=== PATIENT | male | born 1990 | race American Indian/Alaskan Native ===

== ENCOUNTER 2018-01-07 13:50 | Emergency (ER) | payer SELFPAY ==
[2018-01-07 14:35] VITALS: BP 120/78
--- NOTE | 2018-01-07 17:31 | Emergency Department Report ---
Della Doc - Documentation Documentation: Patient is a 27-year-old -[place] male who fell and injured his left fourth digit. He has some scrapes on the dorsal surface of his finger. He does have pain with range of motion. Mostly at the PIP joint. Patient will have x-ray to rule out fracture.
--- NOTE | 2018-01-07 19:42 | XRay Report ---
FINAL REPORT EXAM: XR HAND 3+V LT HISTORY: 4th digit injury pain TECHNIQUE: 3 views of left hand PRIORS: None. FINDINGS: No fracture is identified. No dislocation seen. Joint spaces are within normal limits. No erosive bony change identified. Carpal bones maintain normal alignment. Distal radius and ulna are intact. No radiopaque foreign bodies seen. IMPRESSION: Negative hand series
--- NOTE | 2018-01-07 20:09 | Emergency Department Report ---
ED Laceration [facility] Chief Complaint: Wound/Laceration Stated Complaint: LEFT FINGER PAIN Time Seen by Provider: 01/07/18 17:28 Location: Upper Extremity Severity: mild Tetanus Status: Not up to Date Laceration Symptoms: Yes Pain, No Foreign Body Sensation, No Numbness, No Weakness ED Review of Systems ROS: Stated complaint: LEFT FINGER PAIN Other details as noted in HPI ED Past Medical Hx - Past Medical History Previous Medical History?: No - Surgical History Past Surgical History?: Yes Additional Surgical History: Ear tubes at 4 years old - Social History Smoking Status: Never Smoker - Medications Home Medications: Home Medications Medication Instructions Recorded Confirmed Last Taken Type Amoxicillin/K Clav Tab [Augmentin 1 tab PO BID #20 tablet 07/22/14 Unknown Rx 875MG] Ibuprofen [Motrin] 600 mg PO Q8H PRN #60 tablet 07/22/14 Unknown Rx Loratadine [Claritin] 10 mg PO DAILY #30 tablet 07/22/14 Unknown Rx predniSONE [Deltasone] 50 mg PO QDAY #5 tab 07/22/14 Unknown Rx Ibuprofen [Motrin] 600 mg PO Q8H PRN #60 tablet 08/23/15 Unknown Rx traMADol [Ultram] 50 mg PO Q6HR PRN #14 tablet 08/23/15 Unknown Rx Laceration Physical Exam - Exam General: Vital signs noted. No distress. Alert and acting appropriately. ED Course Vital Signs 01/07/18 14:29 Temperature 98 F Pulse Rate 64 Respiratory 16 Rate Blood Pressure 120/78 O2 Sat by Pulse 95 Oximetry Critical care attestation.: If time is entered above; I have spent that time in minutes in the direct care of this critically ill patient, excluding procedure time. ED Disposition Condition: Stable Referrals: PRIMARY CARE, [Primary Care Provider] - 3-5 Days
[2018-01-07] MEDS ORDERED: MOTRIN PO ONE (20:23)
[2018-01-07] MEDS ORDERED: BOOSTRIX IM ONE (20:23)
--- NOTE | 2018-01-07 20:33 | Emergency Department Report ---
ED Upper Extremity Inj HPI - General Chief Complaint: Wound/Laceration Stated Complaint: LEFT FINGER PAIN Time Seen by Provider: 01/07/18 17:28 Source: patient Mode of arrival: Ambulatory Limitations: No Limitations - History of Present Illness Initial Comments: This is a 27-year-old male nontoxic, well nourished in appearance, no acute signs of distress presents to the ED with c/o of left fourth finger pain status post fall x2 days. Patient stated he tripped and fell. Patient denies any numbness, tingling, fever, chills, headache, nausea, vomiting, chest pain, shortness of breathe. Patient denies any head trauma. Patient denies any allergies or PMH. MD Complaint: Injury to:: left, hand -: days(s) (2) Other Extremity Injury: Hand: Left Other Injuries: none Place: outdoors Severity scale (0 -10): 8 Improves With: immobilization Worsens With: movement of extremity Context: fall, direct blow Associated Symptoms: denies other symptoms. denies: weakness, numbness, neck pain, suspects foreign body, nausea/vomiting, heard/felt popping sensat - Related Data Previous Rx's Medication Instructions Recorded Last Taken Type Amoxicillin/K Clav Tab [Augmentin 1 tab PO BID #20 tablet 07/22/14 Unknown Rx 875MG] Ibuprofen [Motrin] 600 mg PO Q8H PRN #60 tablet 07/22/14 Unknown Rx Loratadine [Claritin] 10 mg PO DAILY #30 tablet 07/22/14 Unknown Rx predniSONE [Deltasone] 50 mg PO QDAY #5 tab 07/22/14 Unknown Rx Ibuprofen [Motrin] 600 mg PO Q8H PRN #60 tablet 08/23/15 Unknown Rx traMADol [Ultram] 50 mg PO Q6HR PRN #14 tablet 08/23/15 Unknown Rx Ibuprofen [Motrin] 600 mg PO Q8H PRN #30 tablet 01/07/18 Unknown Rx Sulfamethoxazole/Trimethoprim 1 each PO BID #14 tablet 01/07/18 Unknown Rx [Bactrim DS TAB] Allergies Allergy/AdvReac Type Severity Reaction Status Date / Time No Known Allergies Allergy Verified 07/22/14 13:09 ED Review of Systems ROS: Stated complaint: LEFT FINGER PAIN Other details as noted in HPI Constitutional: denies: chills, fever Eyes: denies: eye pain, eye discharge, vision change ENT: denies: ear pain, throat pain Respiratory: denies: cough, shortness of breath, wheezing Cardiovascular: denies: chest pain, palpitations Endocrine: no symptoms reported Gastrointestinal: denies: abdominal pain, nausea, diarrhea Genitourinary: denies: urgency, dysuria Musculoskeletal: arthralgia. denies: back pain, joint swelling Skin: denies: rash, lesions Neurological: denies: headache, weakness, paresthesias Psychiatric: denies: anxiety, depression Hematological/Lymphatic: denies: easy bleeding, easy bruising ED Past Medical Hx - Past Medical History Previous Medical History?: No - Surgical History Past Surgical History?: Yes Additional Surgical History: Ear tubes at 4 years old - Social History Smoking Status: Never Smoker - Medications Home Medications: Home Medications Medication Instructions Recorded Confirmed Last Taken Type Amoxicillin/K Clav Tab [Augmentin 1 tab PO BID #20 tablet 07/22/14 Unknown Rx 875MG] Ibuprofen [Motrin] 600 mg PO Q8H PRN #60 tablet 07/22/14 Unknown Rx Loratadine [Claritin] 10 mg PO DAILY #30 tablet 07/22/14 Unknown Rx predniSONE [Deltasone] 50 mg PO QDAY #5 tab 07/22/14 Unknown Rx Ibuprofen [Motrin] 600 mg PO Q8H PRN #60 tablet 08/23/15 Unknown Rx traMADol [Ultram] 50 mg PO Q6HR PRN #14 tablet 08/23/15 Unknown Rx Ibuprofen [Motrin] 600 mg PO Q8H PRN #30 tablet 01/07/18 Unknown Rx Sulfamethoxazole/Trimethoprim 1 each PO BID #14 tablet 01/07/18 Unknown Rx [Bactrim DS TAB] ED Physical Exam - General Limitations: No Limitations General appearance: alert, in no apparent distress - Head Head exam: Present: atraumatic, normocephalic - Eye Eye exam: Present: normal appearance Pupils: Present: normal accommodation - ENT ENT exam: Present: normal exam, mucous membranes moist - Neck Neck exam: Present: normal inspection. Absent: tenderness, meningismus - Respiratory Respiratory exam: Present: normal lung sounds bilaterally. Absent: respiratory distress, wheezes, rales, rhonchi, stridor, chest wall tenderness, accessory muscle use, decreased breath sounds, prolonged expiratory - Cardiovascular Cardiovascular Exam: Present: regular rate, normal rhythm, normal heart sounds. Absent: bradycardia, tachycardia, irregular rhythm, systolic murmur, diastolic murmur, rubs, gallop - GI/Abdominal GI/Abdominal exam: Present: soft, normal bowel sounds - Rectal Rectal exam: Present: deferred - Extremities Exam Extremities exam: Present: normal inspection, full ROM, tenderness, normal capillary refill. Absent: joint swelling - Expanded Upper Extremity Exam Left General: Present: normal inspection Shoulder Exam: Present: normal inspection, full ROM Upper Arm exam: Present: normal inspection, full ROM Elbow exam: Present: normal inspection, full ROM Forearm Wrist exam: Present: normal inspection, full ROM Hand Wrist exam: Present: normal inspection, full ROM, tenderness, abrasion. Absent: swelling, laceration, ecchymosis, deformity, crepidus, dislocation, erythema, amputation, nail avulsion, subungual hematoma Neuro motor exam: Present: wrist extension intact, thumb opposition intact, thumb IP flexion intact, thumb adduction intact, fingers 2-5 abduction intact Neurosensory exam: Present: 2-point discrimination, radial nerve intact, ulnar nerve intact, median nerve intact Vascular: Present: vascular compromise, normal capillary refill, radial pulse, brachial pulse, ulnar pulse - Back Exam Back exam: Present: normal inspection, full ROM - Neurological Exam Neurological exam: Present: alert, oriented X3, normal gait - Psychiatric Psychiatric exam: Present: normal affect, normal mood - Skin Skin exam: Present: warm, dry, intact, normal color. Absent: rash ED Course Vital Signs 01/07/18 14:29 Temperature 98 F Pulse Rate 64 Respiratory 16 Rate Blood Pressure 120/78 O2 Sat by Pulse 95 Oximetry - Reevaluation(s) Reevaluation #1: 01/07/18 20:35 Patient is speaking in full sentences with no signs of distress noted. - Consultations Consultation #1: 01/07/18 20:35 Patient has been consulted with Dr. Partida about patient history, physical exam , and labs and examined and screened patient and agrees to ED plan of care and discharge plan of care. ED Medical Decision Making - Medical Decision Making This is a 27-year-old male presents with left hand strain. Patient is stable and was examined by me and Dr. Partida. There is no deformity present. The abrasion has been cleaned with water and soap. Sterile dressing has been applied. Xray obtained and within normal limits and dictated by the radiologist. Tasneem is notified of the xray results with no questions noted by the patient. Patient was instructed to rice therapy. Patient is discharged with Motrin and Bactrim. Patient was educated on wound care. Patient was referred to Follow-up with a primary care doctor in 3-5 days or if symptoms worsen and continue return to emergency room as soon as possible. At time of discharge, the patient does not seem toxic or ill in appearance. No acute signs of distress noted. Patient agrees to discharge treatment plan of care. No further questions noted by the patient. Critical care attestation.: If time is entered above; I have spent that time in minutes in the direct care of this critically ill patient, excluding procedure time. ED Disposition Clinical Impression: Abrasion Strain of left hand Qualifiers: Encounter type: initial encounter Qualified Code(s): S66.912A - Strain of unspecified muscle, fascia and tendon at wrist and hand level, left hand, initial encounter Disposition: TO HOME OR SELFCARE Is pt being admited?: No Does the pt Need Aspirin: No Condition: Stable Instructions: Abrasion (ED), Ibuprofen (By mouth), Sulfamethoxazole/ Trimethoprim (By mouth) Additional Instructions: Follow-up with a primary care doctor in 3-5 days or if symptoms worsen and continue return to emergency room as soon as possible. Prescriptions: Ibuprofen [Motrin] 600 mg PO Q8H PRN #30 tablet PRN Reason: Pain Sulfamethoxazole/Trimethoprim [Bactrim DS TAB] 1 each PO BID #14 tablet Referrals: PRIMARY MD JATINDER [Primary Care Provider] - 3-5 Days NAUN ABBOTT MD [Staff Physician] - 3-5 Days [facility] [Outside] - 3-5 Days [facility] [Outside] - 3-5 Days Forms: Work/School Release Form(ED)
== END 2018-01-07 21:37 | disposition home or self-care (01) ==
LOC: ED 13:50
DX: S66.912A Strain of unspecified muscle, fascia and tendon at wrist and hand level, left hand, initial encounter (principal); W01.0XXA Fall on same level from slipping, tripping and stumbling without subsequent striking against object, initial encounter; Y93.89 Activity, other specified; Y92.89 Other specified places as the place of occurrence of the external cause; Y99.8 Other external cause status
CPT/HCPCS: 90471; 90715; 99283

== ENCOUNTER 2018-02-07 14:12 | Emergency (ER) | payer SELFPAY ==
--- NOTE | 2018-02-07 16:20 | Emergency Department Report ---
Blank Doc - Documentation Documentation: Patient is a 28-year-old -[place] male who for the last several weeks has been feeling palpitations. Patient states that he feels as though his heart is skipping a beat. He doesn't have any chest pain but states that he just feels that in the middle of his chest. Patient states is becoming more and more frequent. Patient states that yesterday he was short of breath. Patient does states he's having symptoms currently. Brief physical exam patient does have 1 episode where while listening to him he did skip a beat most likely had a PVC. Patient able to rule out a monitor check basic electrolytes and reassess patient.
[2018-02-07 16:49] LABS: Basophils % (Auto) 0.5 % (0.0-1.8); Eosinophils # (Auto) 0.1 K/mm3 (0.0-0.4); Eosinophils % (Auto) 1.8 % (0.0-4.3); Hematocrit 45.4 % (35.5-45.6); Hemoglobin 15.1 gm/dl (11.8-15.2); Lymphocytes % (Auto) 36.5 % (13.4-35.0); Mean Corpuscular HGB Conc 33 % (32-34); Mean Corpuscular Hemoglobin 32 pg (28-32); Mean Corpuscular Volume 97 fl (84-94); Monocytes # (Auto) 0.6 K/mm3 (0.0-0.8); Monocytes % (Auto) 11.5 % (0.0-7.3); Platelet Count 122 K/mm3 (140-440); Red Blood Count 4.69 M/mm3 (3.65-5.03)
[2018-02-07 17:06] LABS: BUN/Creatinine Ratio 12; Blood Urea Nitrogen 11 mg/dL (9-20); Calcium 9.5 mg/dL (8.4-10.2); Hemolysis Index 4
--- NOTE | 2018-02-07 17:12 | Emergency Department Report ---
ED Palpitations HPI - General Chief Complaint: Medical Clearance Stated Complaint: RAPID HEART Time Seen by Provider: 02/07/18 16:06 Source: patient Mode of arrival: Ambulatory Limitations: No Limitations - History of Present Illness Initial Comments: 28-year-old male past medical history smoker presents with complaint of several weeks of intermittent palpitations. Patient states that over the last few days he felt slightly short of breath and felt that his heart was "skipping a beat". Patient is awake alert and oriented 3 fully lucid, speaking in full sentences nontoxic appearing. Patient denies any chest pain or palpitations at the time of my interview with him. Denies fevers chills nausea vomiting or associated diaphoresis. Denies any pleuritic pain. Denies drug use other than smoking tobacco. Denies any history of first-degree relatives with [place]. States that when he spoke to Dr. Partida earlier he felt palpitations. Denies any personal history of PE or DVT. Denies any recent travel or recent surgeries swelling or hormone use. MD Complaint: rapid heart beat, palpitations Onset/Timin -: week(s) Context: occured during rest Associated Symptoms: shortness of breath - Related Data Previous Rx's Medication Instructions Recorded Last Taken Type Amoxicillin/K Clav Tab [Augmentin 1 tab PO BID #20 tablet 07/22/14 Unknown Rx 875MG] Ibuprofen [Motrin] 600 mg PO Q8H PRN #60 tablet 07/22/14 Unknown Rx Loratadine [Claritin] 10 mg PO DAILY #30 tablet 07/22/14 Unknown Rx predniSONE [Deltasone] 50 mg PO QDAY #5 tab 07/22/14 Unknown Rx Ibuprofen [Motrin] 600 mg PO Q8H PRN #60 tablet 08/23/15 Unknown Rx traMADol [Ultram] 50 mg PO Q6HR PRN #14 tablet 08/23/15 Unknown Rx Ibuprofen [Motrin] 600 mg PO Q8H PRN #30 tablet 01/07/18 Unknown Rx Sulfamethoxazole/Trimethoprim 1 each PO BID #14 tablet 01/07/18 Unknown Rx [Bactrim DS TAB] Allergies Allergy/AdvReac Type Severity Reaction Status Date / Time No Known Allergies Allergy Verified 07/22/14 13:09 ED Review of Systems ROS: Stated complaint: RAPID HEART Other details as noted in HPI Constitutional: denies: chills, fever Eyes: denies: eye pain, eye discharge, vision change ENT: denies: ear pain, throat pain Respiratory: denies: cough, shortness of breath, wheezing Cardiovascular: denies: chest pain, palpitations Endocrine: no symptoms reported Gastrointestinal: denies: abdominal pain, nausea, diarrhea Genitourinary: denies: urgency, dysuria Musculoskeletal: denies: back pain, joint swelling, arthralgia Skin: denies: rash, lesions Neurological: denies: headache, weakness, paresthesias Psychiatric: denies: anxiety, depression Hematological/Lymphatic: denies: easy bleeding, easy bruising ED Past Medical Hx - Past Medical History Previous Medical History?: No - Surgical History Additional Surgical History: Ear tubes at 4 years old - Social History Smoking Status: Current Every Day Smoker Substance Use Type: None - Medications Home Medications: Home Medications Medication Instructions Recorded Confirmed Last Taken Type Amoxicillin/K Clav Tab [Augmentin 1 tab PO BID #20 tablet 07/22/14 Unknown Rx 875MG] Ibuprofen [Motrin] 600 mg PO Q8H PRN #60 tablet 07/22/14 Unknown Rx Loratadine [Claritin] 10 mg PO DAILY #30 tablet 07/22/14 Unknown Rx predniSONE [Deltasone] 50 mg PO QDAY #5 tab 07/22/14 Unknown Rx Ibuprofen [Motrin] 600 mg PO Q8H PRN #60 tablet 08/23/15 Unknown Rx traMADol [Ultram] 50 mg PO Q6HR PRN #14 tablet 08/23/15 Unknown Rx Ibuprofen [Motrin] 600 mg PO Q8H PRN #30 tablet 01/07/18 Unknown Rx Sulfamethoxazole/Trimethoprim 1 each PO BID #14 tablet 01/07/18 Unknown Rx [Bactrim DS TAB] ED Physical Exam - General Limitations: No Limitations General appearance: alert, in no apparent distress - Head Head exam: Present: atraumatic, normocephalic - Eye Eye exam: Present: normal appearance, PERRL, EOMI Pupils: Present: normal accommodation - ENT ENT exam: Present: mucous membranes moist - Neck Neck exam: Present: normal inspection - Respiratory Respiratory exam: Present: normal lung sounds bilaterally (lungs clear to auscultation bilaterally). Absent: respiratory distress - Cardiovascular Cardiovascular Exam: Present: regular rate, normal rhythm. Absent: systolic murmur, diastolic murmur, rubs, gallop - GI/Abdominal GI/Abdominal exam: Present: soft (abdomen soft nontender nondistended), normal bowel sounds - Rectal Rectal exam: Present: deferred - Extremities Exam Extremities exam: Present: normal inspection - Back Exam Back exam: Present: normal inspection - Neurological Exam Neurological exam: Present: alert, oriented X3, CN II-XII intact, normal gait - Expanded Neurological Exam Expanded Patient oriented to: Present: person, place, time Motor strength exam: RUE: 5, LUE: 5, RLE: 5, LLE: 5 Best Eye Response ([place]): (4) open spontaneously Best Motor Response ([place]): (6) obeys commands Best Verbal Response ([place]): (5) oriented [place] Total: 15 - Psychiatric Psychiatric exam: Present: normal affect, normal mood - Skin Skin exam: Present: warm, dry, intact, normal color. Absent: rash ED Course Vital Signs 02/07/18 02/07/18 14:15 16:43 Temperature 98 F Pulse Rate 66 59 L Respiratory 16 11 L Rate Blood Pressure 115/77 Blood Pressure 120/77 [Left] O2 Sat by Pulse 99 Oximetry ED Medical Decision Making - Lab Data Result diagrams: 02/07/18 16:35 02/07/18 16:35 - Medical Decision Making A/P: Palpitations, possible PVCs 1- As per Dr. Partida pt may have had PVC earlier when he interviewed him 2- CXR unremarkable, reviewed with Dr. Partida 3- troponin negative, electrolytes normal, early re-abisai pattern on EKG. PERC Rule negative 0 criteria No need for further workup, as <2% chance of PE, HEART Score 2 points Low Score (0-3 points) Risk of MACE of 0.9-1.7%. 4- I emphasized the importance of follow-up with cardiology to the patient. Advised him to return to the ED for any sustained palpitations with associated shortness of breath nausea chest pain pleuritic chest pain fever chills or abdominal pain. Patient stated he understood my instructions 5- VS stable before discharge Critical care attestation.: If time is entered above; I have spent that time in minutes in the direct care of this critically ill patient, excluding procedure time. ED Disposition Clinical Impression: Intermittent palpitations Disposition: DC-01 TO HOME OR SELFCARE Is pt being admited?: No Does the pt Need Aspirin: No Condition: Stable Instructions: Palpitations (ED), Premature Ventricular Contractions (ED) Referrals: [facility], [facility] [Provider Group] - 3-5 Days [facility] [Provider Group] - 3-5 Days [facility] [Outside] - 3-5 Days Forms: Accompanied Note, Work/School Release Form(ED) Time of Disposition: 17:47
[2018-02-07 17:45] VITALS: BP 109/74
--- NOTE | 2018-02-08 07:52 | XRay Report ---
FINAL REPORT EXAM: XR CHEST ROUTINE 2V HISTORY: Palpitations. TECHNIQUE: A lateral and two frontal radiographs of the chest were obtained. No prior studies are available for comparison. FINDINGS: The cardiac silhouette and mediastinum are within normal limits. The lungs are clear bilaterally, without focal infiltrate or effusion. There is no pneumothorax. There is a very slight thoracic dextroscoliosis, which may be positional. IMPRESSION: No active disease seen in the chest.
== END 2018-02-07 17:50 | disposition home or self-care (01) ==
LOC: ED 14:12
DX: R00.2 Palpitations (principal); R06.02 Shortness of breath; F17.200 Nicotine dependence, unspecified, uncomplicated; R00.0 Tachycardia, unspecified; Z79.899 Other long term (current) drug therapy
CPT/HCPCS: 36415; 71046; 80048; 83735; 84484; 85025; 93005; 93010